=== PATIENT | male | born 1990 | race Two or more races ===

== ENCOUNTER 2023-05-22 15:31 | Emergency (ER) | payer SELFPAY ==
[~2023-05-22] VITALS: Ht 170.2 cm; Wt 68.5 kg
[2023-05-22] MEDS ORDERED: IBUP-1953 PO (16:50)
[2023-05-22 17:13] VITALS: BP 124/77; TEMP 98.4; O2SAT 100
== END 2023-05-22 17:13 | disposition home or self-care (01) ==
LOC: ER 15:39
DX: S62.393A Other fracture of third metacarpal bone, left hand, initial encounter for closed fracture (principal); Z60.2 Problems related to living alone; W50.0XXA Accidental hit or strike by another person, initial encounter; Y93.89 Activity, other specified; Y92.89 Other specified places as the place of occurrence of the external cause; Y99.8 Other external cause status
CPT/HCPCS: 73130-TC